=== PATIENT | female | born 1975 | race Caucasian/White ===

== ENCOUNTER 2025-04-01 17:13 | Emergency (ER) | payer OTHER, SELFPAY ==
[2025-04-01 17:16] VITALS: BP 114/76; PULSE 82; RESP 16; TEMP 36.3; O2SAT 94
--- NOTE | 2025-04-01 17:45 | DI.CT_ITS ---
Exam(s) CT CHEST WO EXAM: CT CHEST WO CLINICAL HISTORY: L rib pain. TECHNIQUE: Multi planar reconstructions were performed. CONTRAST MATERIAL: None COMPARISON: No exams were available for comparison FINDINGS: CHEST: LUNGS: There is significant infiltrate in the posterior basal segment of both lower lobes, slightly more so on the left side. There are no pleural effusions. No significant focal findings in the trachea and mainstem bronchi and there is no bronchiectasis. No pneumothorax. MEDIASTINUM: There is no obvious hilar nor mediastinal adenopathy. Visualized thyroid unremarkable.No supraclavicular nor axillary adenopathy. No evidence of sternal fracture or mediastinal hematoma CARDIAC: Heart size is normal. There is no pericardial effusion.Caliber of the thoracic aorta is within normal limits. VISUALIZED UPPER ABDOMEN:No adrenal masses. No ascites. OSSEOUS: There are mildly displaced fractures of the posterior aspects of the left 10th and 11th ribs.No rib lesions. No radiopaque foreign bodies.. IMPRESSION: 1. There are mildly displaced fractures of the posterior-lateral aspects of the left 10th and 11th ribs. There is no pneumothorax. No pleural effusions 2. There is some infiltrate in the posterior basal segments of both lower lobes, more so on the left side. This may be secondary to hypoinflation related to the left rib fractures described above. Report called by myself to ER provider 04/01/2025 at 6:28 p.m. RADIATION DOSE DELIVERED: Total DLP DATA REPOSITORY: All CT scans at this facility are submitted to the National Radiology Data Registry (NRDR) Dose Index Registry (DIR) with the [employer] (A[employer]). RADIATION OPTIMIZATION: All CT scans at this facility use at least one of these dose optimization techniques: automated exposure control; mA and/or kV adjustment per patient size (includes targeted exams where dose is matched to clinical indication); or iterative reconstruction.
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
--- NOTE | 2025-04-01 18:40 | DI.RAD_ITS ---
Exam(s) XR SHOULDER LT COMPLETE 2+V EXAM: XR SHOULDER LT COMPLETE 2+V CLINICAL HISTORY: L shoulder pain. TECHNIQUE: 2D digital imaging was performed. COMPARISON: No exams were available for comparison FINDINGS: Five views There is a fracture of the humeral head and neck which is predominately vertically orientated through the greater tuberosity and there is moderate upward displacement of the main fracture fragment by approximately 4-5 mm. There is no dislocation of the glenohumeral joint nor of the AC joint. The clav icle appears intact. The coracoid process appears intact. There is no obvious scapular fracture. No incidental osseous lesions. No radiopaque foreign bodies. No obvious adjacent upper rib fractures. IMPRESSION: Humeral head-neck fracture as described above, predominately involving the greater tuberosity (which is the attachment site of the majority of the rotator cuff musculature). There is no dislocation of the glenohumeral joint nor of the AC joint. DATA REPOSITORY: RADIATION DOSE DELIVERED:
[2025-04-01] MEDS: Ketorolac 30 MG/ML VIAL IM (18:51)
[2025-04-01] MEDS: Acetaminophen 500 MG TAB 1000 MG PO ×2 (18:54→19:50)
[2025-04-01] MEDS: Cyclobenzaprine 10 MG TAB PO ×2 (19:00→19:50)
[2025-04-01] MEDS: Ketorolac 10 MG TAB PO (19:50)
[2025-04-01 19:51] VITALS: BP 116/78; PULSE 89; RESP 16
== END 2025-04-01 19:54 | disposition home or self-care (01) ==
PROVIDERS: Emergency Provider Physician Assistant
DX: S42.292A Other displaced fracture of upper end of left humerus, initial encounter for closed fracture (principal); S22.42XA Multiple fractures of ribs, left side, initial encounter for closed fracture; V18.4XXA Pedal cycle driver injured in noncollision transport accident in traffic accident, initial encounter; Y92.482 Bike path as the place of occurrence of the external cause; Y93.55 Activity, bike riding
CPT/HCPCS: 71250; 73552; 96372; 99284; 73030; J1885